=== PATIENT | male | born 1945 | race Caucasian/White ===

== ENCOUNTER 2023-08-20 16:49 | Inpatient (IN) | payer MEDICARE ==
[~2023-08-20] VITALS: Ht 170.2 cm; Wt 86.2 kg
[2023-08-20 17:01] VITALS: BP_SYST 145; PULSE 85; RESP 18; TEMP 98.1; O2SAT 99
[2023-08-20] MEDS ORDERED: NACL 0.9% 1,000 ML IV ONE (18:30)
[2023-08-20] MEDS ORDERED: KETOROLAC TROMETHAMINE 30 MG VIAL IVP ONE (18:30)
[2023-08-20 20:01] LABS: BASOPHILS % (AUTO) 0.5 % (0.0-2.0); EOSINOPHILS # (AUTO) 0.3 K/uL (0.0-0.4); EOSINOPHILS % (AUTO) 4.9 % (0.0-4.0); HEMATOCRIT 35.3 % (36-54); HEMOGLOBIN 11.9 g/dL (14.0-18.0); LYMPHOCYTES # (AUTO) 1.4 K/uL (1.0-5.5); LYMPHOCYTES % (AUTO) 22.2 % (20.5-51.5); MEAN CORPUSCULAR HEMOGLOBIN 30 pg (27-31); MEAN CORPUSCULAR HGB CONC 34 % (32-36); MEAN CORPUSCULAR VOLUME 88 fL (79.0-98.0); MONOCYTES # (AUTO) 0.6 K/uL (0.0-1.0); NEUTROPHILS # (AUTO) 3.8 K/uL (1.8-7.7); NEUTROPHILS % (AUTO) 62.4 % (40.0-70.0); PLATELET COUNT (AUTO) 276 K/uL (130-430); RED BLOOD CELL COUNT(AUTO) 4.01 MIL/uL (4.2-6.2); RED CELL DISTRIBUTION WIDTH 14.9 % (9.0-15.0); WHITE BLOOD COUNT (AUTO) 6.2 K/uL (4.8-10.8)
[2023-08-20 20:15] LABS: ANION GAP 9 (5-15); CALCIUM 9.3 mg/dL (8.4-11.0); CARBON DIOXIDE 29 mmol/L (23-29); CHLORIDE 99 mmol/L (98-107); CREATININE 0.88 mg/dL (0.55-1.30); GLUCOSE 171 mg/dL (74-106); POTASSIUM 3.7 mmol/L (3.5-5.1); SODIUM SERUM 137 mmol/L (136-145); UREA NITROGEN, BLOOD 14 mg/dL (8-21)
[2023-08-20] MEDS ORDERED: MORPHINE 2 MG/ML INJ. SYRINGE IVP ONE (20:15)
[2023-08-20 20:20] LABS: ALANINE AMINOTRANSFERASE 22 U/L (12-78); ASPARTATE AMINOTRANSFERASE 17 U/L (10-37); BILIRUBIN,DIRECT 0.1 mg/dL (0.0-0.3); TOTAL BILIRUBIN 0.3 mg/dL (0.0-1.0); TOTAL PROTEIN, SERUM 7.2 g/dL (6.4-8.3)
[2023-08-20 21:00] LABS: BILIRUBIN,URINE NEGATIVE (NEGATIVE); BLOOD, URINE 3+ (NEGATIVE); CLARITY/URINE TURBID (CLEAR); COLOR,URINE RED (YELLOW); GLUCOSE,URINE 3+ (NEGATIVE); KETONES,URINE 1+ (NEGATIVE); LEUKOCYTE ESTERASE ,URINE 2+ (NEGATIVE); NITRITE, URINE POSITIVE (NEGATIVE); PH,URINE 7.5 (5.0-8.0); PROTEIN URINE 3+ (NEGATIVE)
[2023-08-20 21:11] LABS: BACTERIA,URINE MANY /HPF (None Seen); RBC,URINE >100 /HPF (0-3); WBC,URINE >100 /HPF (0-3)
[2023-08-20] MEDS ORDERED: MORPHINE 4 MG INJ. 4 MG/ML VIAL IVP ONE (21:45)
[2023-08-20] MEDS ORDERED: ONDANSETRON HCL 4 MG/2 ML VIAL IVP ONE (21:45)
[2023-08-20] MEDS ORDERED: cefTRIAXone 1 GM VIAL ONE (23:55)
[2023-08-21] MEDS ORDERED: cefTRIAXone 1 GM in D5W 50 ML IV ONE ×2
[2023-08-21] MEDS: NACL 0.9% 1,000 ML IV SCH ×2 (01:42→14:25)
[2023-08-21] MEDS ORDERED: HYDROcodone/ACETAMIN 5-325 MG TAB (NORCO/ VICODIN) PO PRN (03:45)
[2023-08-21] MEDS ORDERED: NALOXONE HCL 0.4 MG/ML AMP (NARCAN) IVP PRN ×3 (03:45→08:00)
[2023-08-21] MEDS ORDERED: LORazepam 2 MG/ML VIAL IVP PRN (08:00)
[2023-08-21] MEDS ORDERED: ZOLPIDEM TARTRATE 5 MG TABLET PO PRN (08:00)
[2023-08-21] MEDS ORDERED: DOCUSATE SODIUM 100 MG CAPSULE PO PRN (08:00)
[2023-08-21] MEDS ORDERED: ACETAMINOPHEN 325 MG TABLET PO PRN ×3 (08:00→09:00)
[2023-08-21] MEDS ORDERED: POTASSIUM CHLORIDE 20 MEQ TABLET.ER PO PRN (08:00)
[2023-08-21] MEDS ORDERED: MUPIROCIN 2% TOPICAL OINTMENT 22 GM NS PRN (08:00)
[2023-08-21] MEDS ORDERED: ONDANSETRON HCL 4 MG/2 ML VIAL IVP PRN (08:00)
[2023-08-21] MEDS ORDERED: MAGNESIUM SULFATE 50 ML IV PRN (08:00)
[2023-08-21] MEDS ORDERED: MORPHINE 2 MG/ML INJ. SYRINGE IVP PRN (08:00)
[2023-08-21] MEDS ORDERED: DEXTROSE 50% JECT 50 ML DISP.SYRIN IVP PRN (08:00)
[2023-08-21] MEDS ORDERED: CINN1CAP2 PO (08:50)
[2023-08-21] MEDS ORDERED: HYT1 PO (08:50)
[2023-08-21] MEDS ORDERED: FER300L PO (08:50)
[2023-08-21] MEDS ORDERED: MELA1TAB PO (08:50)
[2023-08-21] MEDS ORDERED: SSNPH SQ ×2 (08:50)
[2023-08-21] MEDS ORDERED: ASA81 PO (08:50)
[2023-08-21] MEDS ORDERED: ASCO500T20 PO (08:50)
[2023-08-21] MEDS ORDERED: BIOF1TAB8 PO (08:50)
[2023-08-21] MEDS ORDERED: METF-379 PO ×3 (08:50)
[2023-08-21] MEDS ORDERED: KRIL1CAP40 PO (08:50)
[2023-08-21] MEDS ORDERED: FINA-37 PO (08:50)
[2023-08-21] MEDS ORDERED: FINASTERIDE 5 MG TABLET (PROSCAR) PO SCH (09:00)
[2023-08-21] MEDS ORDERED: cefTRIAXone 1 GM in D5W 50 ML IV SCH (09:00)
[2023-08-21 09:20] LABS: BASOPHILS % (AUTO) 0.3 % (0.0-2.0); EOSINOPHILS # (AUTO) 0.1 K/uL (0.0-0.4); EOSINOPHILS % (AUTO) 1.5 % (0.0-4.0); HEMATOCRIT 33.5 % (36-54); HEMOGLOBIN 11.2 g/dL (14.0-18.0); LYMPHOCYTES # (AUTO) 0.8 K/uL (1.0-5.5); MEAN CORPUSCULAR HEMOGLOBIN 29 pg (27-31); MEAN CORPUSCULAR HGB CONC 33 % (32-36); MEAN CORPUSCULAR VOLUME 88 fL (79.0-98.0); MONOCYTES # (AUTO) 0.6 K/uL (0.0-1.0); MONOCYTES % (AUTO) 7.1 % (1.7-9.3); NEUTROPHILS # (AUTO) 7.3 K/uL (1.8-7.7); NEUTROPHILS % (AUTO) 82.1 % (40.0-70.0); PLATELET COUNT (AUTO) 226 K/uL (130-430); RED BLOOD CELL COUNT(AUTO) 3.81 MIL/uL (4.2-6.2); RED CELL DISTRIBUTION WIDTH 14.9 % (9.0-15.0)
[2023-08-21] MEDS ORDERED: cefTRIAXone 1 GM VIAL ONE (09:20)
[2023-08-21 09:22] LABS: WHITE BLOOD COUNT (AUTO) 8.9 K/uL (4.8-10.8)
[2023-08-21] MEDS: MORPHINE 2 MG/ML INJ. SYRINGE IVP PRN ×2 (09:42→13:51)
[2023-08-21 10:15] LABS: HEMOGLOBIN A1C 7.36 % (<5.7)
[2023-08-21] MEDS ORDERED: INSULIN Lispro 100 UNITS/ML, 3 ML VIAL (humaLOG) ONE (11:44)
[2023-08-21] MEDS: INSULIN LISPRO SLIDING SCALE 100 UNITS/ML, 3 ML VIAL (humaLOG) SUBCUT PRN ×2 (11:45→17:45)
[2023-08-21] MEDS ORDERED: MORPHINE 2 MG/ML INJ. SYRINGE ONE (13:50)
[2023-08-21 17:34] VITALS: BP_SYST 138; PULSE 79; RESP 18; TEMP 98; O2SAT 95
[2023-08-21] MEDS ORDERED: INSULIN REGULAR, HUMAN 10 UNITS/0.1 ML, 3 ML VIAL ONE (17:47)
[2023-08-21] MEDS ORDERED: ACETAMINOPHEN 500 MG TABLET PO PRN ×3 (21:00)
== END 2023-08-21 20:00 | disposition short-term general hospital (02) | DRG 690 ==
LOC: SED 16:49 → SMU 23:56
PROVIDERS: ADMIT General Practice; ATTEND General Practice
DX: N39.0 Urinary tract infection, site not specified (principal); E44.1 Mild protein-calorie malnutrition; N40.1 Benign prostatic hyperplasia with lower urinary tract symptoms; Z68.29 Body mass index [BMI] 29.0-29.9, adult; R31.0 Gross hematuria; R33.9 Retention of urine, unspecified; E11.9 Type 2 diabetes mellitus without complications; Z80.42 Family history of malignant neoplasm of prostate; Z85.46 Personal history of malignant neoplasm of prostate; Z87.891 Personal history of nicotine dependence; R33.8 Other retention of urine
CPT/HCPCS: 36415; 76770; 80048; 80076; 81000; 81001; 81015; 82962; 83037; 85025; 87040; 87086; 99285; J0696; J1815; J1885; J2270; J2405; J7060